=== PATIENT | male | born 1955 | race Caucasian/White ===

== ENCOUNTER 2020-04-13 23:03 | Inpatient (IN) | payer MEDICARE ==
[~2020-04-13] VITALS: Ht 180.3 cm; Wt 83.0 kg
--- NOTE | 2020-04-13 23:10 | NUR ---
ED Nurse Note: pt brought in by ambulance from [facility] living [facility], c/o SOB for several hours, pt has a hx of COPD, pt reports the facility ran out of o2. Pt is Spo2 99% on 4L, drops down to 90% on room air. Pt is A&Ox4, VSS, pt placed on quality assurance monitor chassis, ERMD at bedside.
--- NOTE | 2020-04-13 23:18 | Emergency Room Report ---
History of Present Illness General Chief Complaint: Dyspnea/Respdistress Source: Patient, EMS Present Illness HPI This is a 65-year-old male with history of COPD. He currently takes albuterol for. Patient presents with chief complaint of shortness of breath. He claimed that his oxygen is out. Patient is a very poor historian. He said that he was in the hospital a week ago and had a biopsy of his lungs. He does not know results. He has not follow-up. He was discharged on oxygen. He said that they drop off the oxygen and left. They did not hook it up. He does not know how it works. He thinks that is out of oxygen. He called 911. Per EMS on room air his oxygenation was 91%. On 4 L, it was 100%. Patient complained of feeling short of breath. Worse with exertion. No fever chills. No cough or congestion. No chest pain. 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: No Patient History Past Medical History: see triage record, old chart reviewed, COPD Past Surgical History: other Pertinent Family History: none Social History: Denies: smoking - History of Immunizations: other Reviewed Nursing Documentation: PMH: Agreed; PSxH: Agreed Nursing Documentation-PMH Hx COPD: Yes Review of Systems Eye: Denies: eye pain, blurred vision ENT: Denies: ear pain, nose congestion, throat swelling Respiratory: Reports: shortness of breath; Denies: cough Cardiovascular: Denies: chest pain, palpitations Gastrointestinal: Denies: abdominal pain, diarrhea, nausea, vomiting Musculoskeletal: Denies: back pain, joint pain Skin: Denies: rash Neurological: Denies: headache, numbness Endocrine: Denies: increased thirst, increased urine Hematologic/Lymphatic: Denies: easy bruising All Other Systems: negative except mentioned in HPI Physical Exam Vital Signs Date Time Temp Pulse Resp B/P (MAP) Pulse Ox O2 Delivery O2 Flow Rate FiO2 04/13/20 23:01 97.9 90 18 113/79 (90) 92 Room Air Vitals with mild hypoxia Sp02 EP Interpretation: reviewed, abnormal General Appearance: alert, Chronically Ill Head: normocephalic, atraumatic Eyes: bilateral eye PERRL, bilateral eye EOMI ENT: hearing grossly normal, normal pharynx Neck: full range of motion, supple, no meningismus Respiratory: chest non-tender, lungs clear, normal breath sounds Cardiovascular #1: regular rate, rhythm, no murmur Gastrointestinal: normal bowel sounds, non tender, no mass, no organomegaly, no bruit, non-distended Musculoskeletal: back normal, normal range of motion, gait/station normal Psychiatric: mood/affect normal Medical Decision Making Diagnostic Impression: Primary Impression: COPD exacerbation Additional Impressions: Lung cancer Qualified Codes: C34.80 - Malignant neoplasm of overlapping sites of unspecified bronchus and lung Leukocytosis Qualified Codes: D72.829 - Elevated white blood cell count, unspecified ER Course This patient presents with dyspnea. This point a combination of lung cancer and COPD. He is resting comfortably. Oxygenation is around 93 to 95% on room air. Prognosis is poor. Will admit for further work-up. I contacted Dr. Nelson for admission. EKG Diagnostic Results Rate: normal Rhythm: NSR ST Segments: no acute changes Rhythm Strip Diag. Results EP Interpretation: yes Rate: 85 Rhythm: NSR, no PVC's, no ectopy Chest X-Ray Diagnostic Results Chest X-Ray Diagnostic Results : Chest X-Ray Ordered: Yes # of Views/Limited/Complete: 1 View Indication: Shortness of Breath Interpretation: no effusion, no pneumothorax, other - elevated rt hemidiaphragm; Impression: Other - elevated rt diaphragm Electronically Signed by: David Garrido MD CT/MRI/US Diagnostic Results CT/MRI/US Diagnostic Results : Imaging Test Ordered: CT chest Impression Read by radiologist. No PE. Left lung mass concerning for neoplasm. Last Vital Signs Date Time Temp Pulse Resp B/P (MAP) Pulse Ox O2 Delivery O2 Flow Rate FiO2 04/13/20 23:01 97.9 90 18 113/79 (90) 92 Room Air Status: improved Disposition: ADMITTED INPATIENT Condition: Serious David Garrido MD Apr 13, 2020 23:18
[2020-04-13 23:25] VITALS: BP 113/79
[2020-04-13 23:33] LABS: HEMATOCRIT 46.7 % (42.0-52.0); MEAN CORPUSCULAR VOLUME 97 FL (80-99); PLATELET COUNT 167 K/UL (150-450); RED BLOOD COUNT 4.82 M/UL (4.70-6.10); RED CELL DISTRIBUTION WIDTH 12.3 % (11.6-14.8)
[2020-04-13 23:47] LABS: ANION GAP 10 mmol/L (5-15); BLOOD UREA NITROGEN 18 mg/dL (7-18); CALCIUM 8.7 MG/DL (8.5-10.1); CARBON DIOXIDE 25 MMOL/L (21-32); CHLORIDE 105 MMOL/L (98-107); CREATININE 1.2 MG/DL (0.55-1.30); POTASSIUM 3.5 MMOL/L (3.5-5.1); SODIUM 140 MMOL/L (136-145)
[2020-04-13 23:57] LABS: ALANINE AMINOTRANSFERASE 27 U/L (12-78); ALBUMIN 3.3 G/DL (3.4-5.0); ALBUMIN/GLOBULIN RATIO 1.1 (1.0-2.7); ALKALINE PHOSPHATASE 79 U/L (46-116); ASPARTATE AMINO TRANSFERASE 14 U/L (15-37); BILIRUBIN,TOTAL 0.4 MG/DL (0.2-1.0)
[2020-04-14] VITALS (7 sets, daily range): BP systolic 95–132; BP diastolic 56–81
[2020-04-14] MEDS ORDERED: Omnipaque 350 100ml vial INJ PRN (00:15)
--- NOTE | 2020-04-14 00:23 | NUR ---
ED Nurse Note: pt to CT, SPo2 95% on room air
[2020-04-14 00:42] LABS: APPEARANCE,URINE CLEAR; BILIRUBIN, URINE NEGATIVE (NEGATIVE); GLUCOSE, URINE (UA) NEGATIVE (NEGATIVE); KETONES,URINE NEGATIVE (NEGATIVE); LEUKOCYTE ESTERASE ,URINE 1+ (NEGATIVE); NITRITE,URINE NEGATIVE (NEGATIVE); PH,URINE 6.5 (4.5-8.0); PROTEIN,URINE NEGATIVE (NEGATIVE); UROBILINOGEN,URINE 1 MG/DL (0.0-1.0)
[2020-04-14 00:48] LABS: COLOR,URINE YELLOW
--- NOTE | 2020-04-14 01:00 | NUR ---
ED Nurse Note: Pt resting in bed with eyes closed, non-labored breathing, spo2 95% on room air, will continue to monitor
--- NOTE | 2020-04-14 01:13 | Diagnostic Imaging Report ---
EXAM: CT Angiography Chest With Intravenous Contrast CLINICAL HISTORY: SOB TECHNIQUE: Axial computed tomographic angiography images of the chest with intravenous contrast. CTDI is 24 mGy and DLP is 251 mGy-cm. One or more of the following dose reduction techniques were used: automated exposure control, adjustment of the mA and/or kV according to patient size, use of iterative reconstruction technique. MIP reconstructed images were created and reviewed. Coronal and sagittal reformatted images were created and reviewed. COMPARISON: No relevant prior studies available. FINDINGS: Pulmonary arteries: No pulmonary embolism. Aorta: No acute findings. No thoracic aortic aneurysm. Lungs: Left lung mass concerning for bronchogenic carcinoma 2.9 x 3.1 x 3.9 cm. Lung mass causes severe narrowing of adjacent branch pulmonary arteries, and is at least partially surrounding the left lingular bronchus. Likely metastatic left upper lobe spiculated 1.5 cm nodule axial series 7 image 33. Centrilobular emphysema. Pleural space: Unremarkable. No significant effusion. No pneumothorax. Heart: Unremarkable. No cardiomegaly. No significant pericardial effusion. No evidence of RV dysfunction. Bones/joints: Multilevel age-related degenerative spine findings and osteopenia. No acute fracture. No dislocation. Soft tissues: Unremarkable. Lymph nodes: Unremarkable. No enlarged lymph nodes. IMPRESSION: 1. No pulmonary embolism. 2. Left lung mass concerning for bronchogenic carcinoma 2.9 x 3.1 x 3.9 cm. 3. Lung mass causes severe narrowing of adjacent branch pulmonary arteries, and is at least partially surrounding the left lingular bronchus. 4. Recommend endobronchial ultrasound-guided biopsy. 5. Likely metastatic left upper lobe spiculated 1.5 cm nodule axial series 7 image 33.
[2020-04-14] MEDS ORDERED: GABAPENTIN100 MG ORAL (01:29)
[2020-04-14] MEDS ORDERED: NORCO 5-325 TA1 EAC1 ORAL (01:29)
[2020-04-14] MEDS ORDERED: ALBUTEROL2.5 MG/3 M INH (01:29)
--- NOTE | 2020-04-14 02:10 | NUR ---
TRANSFER TO FLOOR: Patient transferred to as ordered, per Dr Nelson. Report given to SHAHLA Lugo. Belongings and medications given to . Family and or S/O informed of transfer.
[2020-04-14] MEDS ORDERED: Albuterol ud Inhalation HHN PRN (03:45)
[2020-04-14] MEDS ORDERED: cefTRIAXone 1 GM in D5W 55 ML IVPB SCH (03:45)
[2020-04-14] MEDS: HYDROcodone/Acetamin 5/325 tab ORAL PRN ×3 (06:33→17:35)
--- NOTE | 2020-04-14 07:15 | NUR ---
NURSE NOTES: Admitted is a 65 years old male, alert and oriented. No sob noted at this time. Denies any pain. Pt. refused to have body assessment and refused to wear a gown. Pt. able to void.All orders verified with Dr. Nelson and carried out. Will continue to monitor.
--- NOTE | 2020-04-14 07:20 | NUR ---
HAND-OFF: Report given to faheem GALE.
--- NOTE | 2020-04-14 07:25 | NUR ---
nurse notes received patient in bed, asleep but easily arousable no sign of distress on RA,denies pain or discomfort, on fall precaution observed, IVF on going no sign of infiltration noted, plan of care was disccused needs reinforcement keep clean dry and comfortable in bed, call light w/n easy reach bill moreno
[2020-04-14] MEDS: Solu-MEDROL 40mg Inj IVP SCH ×2 (10:50→21:05)
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
--- NOTE | 2020-04-14 13:49 | Diagnostic Imaging Report ---
Indication: Shortness of breath Technique: One view of the chest Comparison: none Findings: The right hemidiaphragm is elevated. The lungs and pleural spaces are clear. The heart size is normal. Impression: No acute process
--- NOTE | 2020-04-14 13:55 | NUR ---
CASE MANAGEMENT:INITIAL REVIEW 65 YR OLD MALE IRVING FROM HOME (GROUP LIVING FACILITY) CC;DYSPNEA. RESPIRATORY DISTRESS. SI;COPD. HYPOXIA. 98.0 90 18 128/81 92% 2L NC WBC 21.0 BNP 200 UA+ BLOOD, UROBILINOGEN, LEUKOCYTE ESTERASE, RBC URINE TOX ~ NEGATIVE COVID-19 RAPID ~ NEGATIVE CXR ~ NO ACUTE PROCESS ADMITTED TO MED SURG FOR FURTHER WORK UP MED SURG STATUS DCP;FROM ASSISTED LIVING Addendum: 04/14/20 at 1514 by TIMMY FAIRCHILD LVN LVN INTERQUAL CRITERIA MET
--- NOTE | 2020-04-14 15:45 | Consultation ---
DATE OF CONSULTATION: 04/14/2020 PULMONARY CONSULTATION HISTORY OF PRESENT ILLNESS: This is a 65-year-old male with a long-standing history of emphysema. He takes albuterol on a regular basis. He came to the hospital with worsening shortness of breath. The patient states that he has oxygen at home, but he ran out. The patient states he was recently discharged from the hospital and had a lung biopsy; however, he is unable to recall the name of the hospital. At this time, he states he is feeling better with oxygen. The patient was admitted to the hospital and had a CT chest, which showed that he had a finding suspicious for lung cancer. He has evidence of a left lung mass concerning for bronchogenic carcinoma. This mass is causing narrowing of the pulmonary arteries as well as partially surrounding the left lingular bronchus. There is a spiculated lesion in the left upper lobe with centrilobular emphysema. There is also fine ground-glass infiltrates suspicious for pneumonic process. The patient is unable to provide any further history. PAST HISTORY: Emphysema, probable lung cancer. HOME MEDICATIONS: Albuterol. ALLERGIES: None. REVIEW OF SYSTEMS: Denies any headaches, hematemesis, melena, hematochezia, night sweats, or weight loss. PHYSICAL EXAMINATION: GENERAL: A 65-year-old male lying in bed. VITAL SIGNS: Blood pressure is 119/60, heart rate 80, respirations 18, O2 sats 98% on room air. LABORATORY TESTING: White count 21,000, otherwise normal CBC and BMP. Toxicology is negative. Urinalysis is negative. Coags are normal. IMPRESSION: 1. Left lung mass, suspect carcinoma. 2. Postobstructive pneumonia, left lung. 3. Emphysema. DISCUSSION: Admit to the hospital. The patient needs steroids and antibiotics. He has received Solu-Medrol and he is also on Levaquin. We will attempt to obtain old records. The patient may be a candidate for chemoradiation versus palliative care. Mateus Romero M.D. DR: IESHA JOB#: [id number] CC:
--- NOTE | 2020-04-14 19:10 | NUR ---
HAND-OFF: Report given to Jv GALE resting comfortably in bed, needs met and anticipated bill moreno.
--- NOTE | 2020-04-14 20:15 | NUR ---
NURSE NOTES: patient in bed, awake, alert and verbally responsive. Able to make needs known. Respiration is even and unlabored. No complaint of pain or discomfort noted. Abdomen is soft and non distended. IV site note, iv fluid is infusing as ordered. Kept clean and comfortable. Bed in low and locked position. Provided safe environment. Call light is at bedside Will continue plan of care.
[2020-04-15 04:00] VITALS: BP 94/62
--- NOTE | 2020-04-15 05:52 | Pulmonology Progress Note ---
Subjective Interval Events: None new reported Constitutional: Reports: no symptoms HEENT: Repors: no symptoms Respiratory: Reports: no symptoms Cardiovascular: Reports: no symptoms Gastrointestinal/Abdominal: Reports: no symptoms Allergies: Uncoded Allergies: PENICILLIN (Allergy, Unknown, 04/13/20) Objective Last 24 Hour Vital Signs Date Time Temp Pulse Resp B/P (MAP) Pulse Ox O2 Delivery O2 Flow Rate FiO2 04/15/20 04:00 98.6 63 16 94/62 (73) 97 04/14/20 23:51 97.2 68 18 95/63 (74) 97 04/14/20 21:00 Room Air 04/14/20 20:00 97.9 71 18 105/68 (80) 95 04/14/20 16:17 98.1 68 19 132/81 (98) 97 04/14/20 11:59 98.0 82 21 119/68 (85) 97 04/14/20 09:30 Room Air 04/14/20 08:00 97.7 86 20 110/60 (77) 97 04/14/20 07:03 98.3 Intake and Output 04/14/20 04/15/20 19:00 07:00 Intake Total 2150 ml Balance 2150 ml Intake Oral 1100 ml IV Total 1050 ml # Voids 7 General Appearance: no acute distress HEENT: normocephalic Respiratory: chest wall non-tender Cardiovascular: normal peripheral pulses, normal rate Abdomen: normal bowel sounds Microbiology Date/Time Source Procedure Growth Status 04/13/20 23:20 Nasopharynx SARS-CoV-2 RdRp Gene Assay - Final Complete Current Medications Medications (Trade) Dose Ordered Sig/Julio Route PRN Reason Start Time Stop Time Status Last Admin Dose Admin Acetaminophen/ Hydrocodone Bitart ([place] 5/325) 1 tab Q6H PRN ORAL FOR PAIN 04/14/20 03:45 04/21/20 03:44 04/14/20 17:35 Albuterol Sulfate (Proventil) 2.5 mg Q4H PRN HHN Shortness of Breath 04/14/20 03:45 04/19/20 03:44 Gabapentin (Neurontin) 100 mg THREE TIMES A DAY ORAL 04/14/20 09:00 05/14/20 08:59 04/14/20 17:22 Levofloxacin 100 ml @ 100 mls/hr Q24H IVPB 04/14/20 09:00 04/21/20 08:59 04/14/20 08:20 Methylprednisolone Sodium Succinate (Solu-MEDROL) 40 mg EVERY 12 HOURS IVP 04/14/20 10:45 07/13/20 10:44 04/14/20 21:05 Nicotine (Nicoderm) 1 patch Q24H TDERMAL 04/14/20 11:00 07/13/20 10:59 04/14/20 10:50 Sodium Chloride 1,000 ml @ 100 mls/hr Q10H IV 04/14/20 04:00 05/14/20 03:59 04/15/20 03:00 Assessment/Plan Assessment/Plan IMPRESSION: 1. Left lung mass, suspect carcinoma. 2. Postobstructive pneumonia, left lung. 3. Emphysema. DISCUSSION: Continue steroids and antibiotics. He has received Solu-Medrol and he is also on Levaquin. Patient states he recently underwent lung biopsy Recommend oncology eval The patient may be a candidate for chemoradiation versus palliative care. Joshua Reeves Omar Syed MD Apr 15, 2020 05:52
--- NOTE | 2020-04-15 07:20 | NUR ---
NURSE NOTES: Received report from SHAHLA Carias. Patient A&Ox4, on nasal cannula. No signs of distress. IV intact, patent, and saline locked. Bed in lowest position with call light in reach. Will continue with plan of care.
--- NOTE | 2020-04-15 07:26 | NUR ---
HAND-OFF: Report given to Mikayla Cho.
[2020-04-15 08:00] VITALS: BP 96/82
[2020-04-15 09:21] VITALS: BP 104/70
[2020-04-15] MEDS: HYDROcodone/Acetamin 5/325 tab ORAL PRN ×3 (09:22→23:25)
[2020-04-15] MEDS: Solu-MEDROL 40mg Inj IVP SCH ×2 (09:23→20:54)
[2020-04-15 12:00] VITALS: BP 95/61
--- NOTE | 2020-04-15 13:30 | History and Physical Report ---
DATE OF ADMISSION: 04/14/2020 HISTORY OF PRESENT ILLNESS: This is a 65-year-old male who came from home where he has short of breath and hypoxia for a few days prior to admission. The patient is currently sitting in bed and is still hypoxic and wheezing. PAST MEDICAL HISTORY: Significant for chronic pain, anxiety, COPD, smoker. ALLERGIES: NKA. MEDICATIONS: Tylenol, [place], gabapentin. PHYSICAL EXAMINATION: VITAL SIGNS: Blood pressure 110/60, pulse 86, respirations 20, temperature 97.7 HEENT: NAD. CHEST: Bilateral scattered wheezing. CARDIOVASCULAR: Regular rhythm. No gallop. No murmur. ABDOMEN: Soft. Positive bowel sounds. Nontender. EXTREMITIES: No edema GENITOURINARY: Deferred. LABORATORY DATA: White counts are 21,000, hemoglobin 16, hematocrit 46, and platelets 167,000. Chemistry panel - sodium 140, potassium 3.5, BUN 18, creatinine 1.2. Glucose is 113. Urine showing 1+ blood, 1+ urobilinogen, 1+ leukocyte esterase. Toxicology report is negative. CT of chest showing no pulmonary embolism, left lung mass concerning of bronchogenic carcinoma. Lung mass causes severe pulmonary artery ultrasound-guided biopsy. ASSESSMENT: 1. Possible lung mass. 2. Acute COPD exacerbation. 3. Anxiety. 4. Smoker. PLAN: We will admit on medical floor. Add IV antibiotics, IV steroid bronchodilator treatment. Discussed with Dr. Romero, Pulmonary consult. Also discussed with charge nurse and recommended to quit smoking at this point. Franklin Nelson M.D. DR: OSIEL JOB#: [id number] CC:
--- NOTE | 2020-04-15 14:52 | NUR ---
CASE MANAGEMENT: REVIEW 04/15/2020 SI:COPD. HYPOXIA. VS: 97.5 HR 88 RR 20 B/P 95/61 SATS 95% ON RA LABS: NO LABS TODAY IS:NS @ 100 ML/HR SOLU MEDROL IV Q12H GABAPENTIN PO TID MED/SURG DCP: [facility] PLAN OF CARE: IV antibiotics, IV steroid bronchodilator treatment.
[2020-04-15 16:00] VITALS: BP 100/67
--- NOTE | 2020-04-15 17:00 | Progress Note ---
DATE: 04/15/2020 SUBJECTIVE: This is elderly male, who is still short of breath, hypoxic, lying in bed. OBJECTIVE: VITAL SIGNS: Blood pressure 95/61, pulse 88, respirations 20, temperature is 97.5. HEENT: NAD. CHEST: Bilaterally scattered wheezing. CARDIOVASCULAR: Regular rhythm. No gallop. No murmur. ABDOMEN: Soft. EXTREMITIES: CCE. ASSESSMENT: 1. Acute COPD exacerbation. 2. Anxiety. 3. Chronic pain. 4. Depression. PLAN: Continue Solu-Medrol. Continue Levaquin. Continue gabapentin, [place]. Franklin Nelson M.D. DR: CAROLINE JOB#: [id number] CC:
--- NOTE | 2020-04-15 19:16 | NUR ---
HAND-OFF: Report given to SHAHLA Carias. Rounds done.
--- NOTE | 2020-04-15 19:59 | NUR ---
NURSE NOTES: Patient in bed, awake, alert and verbally responsive. Able to make needs known. Respiration is even and unlabored. Kept clean and comfortable. No complaint of pain or discomfort noted. Iv site noted, iv fluid is infusing as ordered. Bed in low and locked position. Provided safe environment. Call light is at bedside. Will continue plan of care.
[2020-04-15 20:00] VITALS: BP 98/68
[2020-04-15] MEDS: Zolpidem 5mg tab ORAL PRN (20:54)
[2020-04-16] VITALS: BP 107/73
[2020-04-16 04:00] VITALS: BP 110/66
[2020-04-16] MEDS: HYDROcodone/Acetamin 5/325 tab ORAL PRN ×3 (05:35→20:47)
--- NOTE | 2020-04-16 06:59 | NUR ---
HAND-OFF: Report given to Mikayla Maldonado.
[2020-04-16 08:00] VITALS: BP 120/70
--- NOTE | 2020-04-16 08:06 | NUR ---
NURSE NOTES: Received report from SHAHLA Alegria. patient seen in bed, AAOx4, ambulatory with steady gait, with NC 2L/m. IV site patent and intact. Patient denies any chest pain or SOB at this time. Patient does not appear to be in any distress. Bed is locked and placed in lowest position. Call light within reach. Will continue to monitor.
[2020-04-16] MEDS: Solu-MEDROL 40mg Inj IVP SCH ×2 (09:01→20:46)
[2020-04-16 10:58] LABS: HEMATOCRIT 40.3 % (42.0-52.0); HEMOGLOBIN 13.4 G/DL (14.2-18.0); MEAN CORPUSCULAR VOLUME 99 FL (80-99); PLATELET COUNT 162 K/UL (150-450); RED BLOOD COUNT 4.08 M/UL (4.70-6.10); RED CELL DISTRIBUTION WIDTH 12.2 % (11.6-14.8); WHITE BLOOD COUNT 18.7 K/UL (4.8-10.8)
[2020-04-16 11:09] LABS: ALANINE AMINOTRANSFERASE 20 U/L (12-78); ALBUMIN/GLOBULIN RATIO 1.2 (1.0-2.7); ALKALINE PHOSPHATASE 66 U/L (46-116); ANION GAP 4 mmol/L (5-15); ASPARTATE AMINO TRANSFERASE 13 U/L (15-37); BILIRUBIN,TOTAL 0.2 MG/DL (0.2-1.0); BLOOD UREA NITROGEN 16 mg/dL (7-18); CALCIUM 8.4 MG/DL (8.5-10.1); CARBON DIOXIDE 27 MMOL/L (21-32); CHLORIDE 108 MMOL/L (98-107); CREATININE 0.9 MG/DL (0.55-1.30); POTASSIUM 4.7 MMOL/L (3.5-5.1); SODIUM 139 MMOL/L (136-145)
[2020-04-16 12:00] VITALS: BP 117/72
--- NOTE | 2020-04-16 14:25 | Pulmonology Progress Note ---
Subjective ROS Limited/Unobtainable: No Interval Events: None new reported Constitutional: Reports: no symptoms HEENT: Repors: no symptoms Respiratory: Reports: no symptoms Cardiovascular: Reports: no symptoms Gastrointestinal/Abdominal: Reports: no symptoms Allergies: Coded Allergies: PENICILLINS (Verified Allergy, Intermediate, 04/15/20) hives Objective Last 24 Hour Vital Signs Date Time Temp Pulse Resp B/P (MAP) Pulse Ox O2 Delivery O2 Flow Rate FiO2 04/16/20 12:00 97.5 67 20 117/72 (87) 95 04/16/20 09:00 Nasal Cannula 2.0 04/16/20 08:00 98.7 75 18 120/70 (87) 95 04/16/20 04:00 97.8 71 18 110/66 (81) 94 04/16/20 00:00 97.6 74 18 107/73 (84) 95 04/15/20 20:13 Nasal Cannula 2.0 04/15/20 20:00 72 18 94 Nasal Cannula 2.0 28 04/15/20 20:00 94 Nasal Cannula 2.0 28 04/15/20 20:00 97.9 72 16 98/68 (78) 95 04/15/20 16:00 99.0 92 20 100/67 (78) 94 Intake and Output 04/15/20 04/16/20 19:00 07:00 Intake Total 1400 ml 1700 ml Output Total 1600 ml 1000 ml Balance -200 ml 700 ml Intake Oral 600 ml 800 ml IV Total 800 ml 900 ml Output Urine Total 1600 ml 1000 ml General Appearance: no acute distress HEENT: normocephalic Respiratory: chest wall non-tender Cardiovascular: normal peripheral pulses, normal rate Abdomen: normal bowel sounds Microbiology Date/Time Source Procedure Growth Status 04/13/20 23:20 Nasopharynx SARS-CoV-2 RdRp Gene Assay - Final Complete Laboratory Tests 04/16/20 10:35: White Blood Count 18.7H, Red Blood Count 4.08L, Hemoglobin 13.4L, Hematocrit 40.3L, Mean Corpuscular Volume 99, Mean Corpuscular Hemoglobin 32.9H, Mean Corpuscular Hemoglobin Concent 33.3, Red Cell Distribution Width 12.2, Platelet Count 162, Mean Platelet Volume 6.6, Neutrophils (%) (Auto) , Lymphocytes (%) ( Auto) , Monocytes (%) (Auto) , Eosinophils (%) (Auto) , Basophils (%) (Auto) , Differential Total Cells Counted 100, Neutrophils % (Manual) 84H, Lymphocytes % (Manual) 9L, Monocytes % (Manual) 7, Eosinophils % (Manual) 0, Basophils % ( Manual) 0, Band Neutrophils 0, Platelet Estimate Adequate, Platelet Morphology Normal, Red Blood Cell Morphology Normal, Sodium Level 139, Potassium Level 4.7 , Chloride Level 108H, Carbon Dioxide Level 27, Anion Gap 4L, Blood Urea Nitrogen 16, Creatinine 0.9, Estimat Glomerular Filtration Rate > 60, Glucose Level 118H, Calcium Level 8.4L, Total Bilirubin 0.2, Aspartate Amino Transf (AST /SGOT) 13L, Alanine Aminotransferase (ALT/SGPT) 20, Alkaline Phosphatase 66, Total Protein 5.5L, Albumin 3.0L, Globulin 2.5, Albumin/Globulin Ratio 1.2 Current Medications Medications (Trade) Dose Ordered Sig/Julio Route PRN Reason Start Time Stop Time Status Last Admin Dose Admin Acetaminophen/ Hydrocodone Bitart ([place] 5/325) 1 tab Q6H PRN ORAL FOR PAIN 04/14/20 03:45 04/21/20 03:44 04/16/20 05:35 Albuterol Sulfate (Proventil) 2.5 mg Q4H PRN HHN Shortness of Breath 04/14/20 03:45 04/19/20 03:44 Gabapentin (Neurontin) 100 mg THREE TIMES A DAY ORAL 04/14/20 09:00 05/14/20 08:59 04/16/20 12:11 Levofloxacin 100 ml @ 100 mls/hr Q24H IVPB 04/14/20 09:00 04/21/20 08:59 04/16/20 09:33 Methylprednisolone Sodium Succinate (Solu-MEDROL) 40 mg EVERY 12 HOURS IVP 04/14/20 10:45 07/13/20 10:44 04/16/20 09:01 Nicotine (Nicoderm) 1 patch Q24H TDERMAL 04/14/20 11:00 07/13/20 10:59 04/16/20 11:11 Sodium Chloride 1,000 ml @ 100 mls/hr Q10H IV 04/14/20 04:00 05/14/20 03:59 04/16/20 06:06 Zolpidem Tartrate (Ambien) 5 mg HSPRN PRN ORAL Insomnia 04/15/20 19:30 04/22/20 19:29 04/15/20 20:54 Assessment/Plan Assessment/Plan Pulmonary Progress Note Subjective Interval Events: None new reported Constitutional: Reports: no symptoms HEENT: Repors: no symptoms Respiratory: Reports: no symptoms Cardiovascular: Reports: no symptoms Gastrointestinal/Abdominal: Reports: no symptoms Allergies: Uncoded Allergies: PENICILLIN (Allergy, Unknown, 04/13/20) Objective Vital Signs Noted General Appearance: no acute distress HEENT: normocephalic Respiratory: chest wall non-tender Cardiovascular: normal peripheral pulses, normal rate Abdomen: normal bowel sounds Labs noted Radiology noted IMPRESSION: 1. Left lung mass, suspect carcinoma. 2. Postobstructive pneumonia, left lung. 3. Emphysema. PLAN: Continue steroids, HHN and antibiotics. Patient recently underwent lung biopsy, await results The patient may be a candidate for chemoradiation versus palliative care. Jalil Andrea MD Apr 16, 2020 14:25
[2020-04-16 16:00] VITALS: BP 130/70
--- NOTE | 2020-04-16 17:00 | Progress Note ---
DATE: 04/16/2020 This is a 65-year-old male who came with severe depression and acute shortness of breath secondary to acute COPD exacerbation. The patient is currently in the bed, feeling okay. Shortness of breath is same. PHYSICAL EXAMINATION: VITAL SIGNS: Blood pressure is 130/70, pulse 74, respirations 18. HEENT: NAD. CHEST: Bilaterally decreased breath sounds. CARDIOVASCULAR: Regular rhythm. No gallop. No murmur. ABDOMEN: Soft. Positive bowel sounds. Nontender. EXTREMITIES: No edema. GENITOURINARY: Deferred. LABORATORY DATA: The patient has no labs today. ASSESSMENT: 1. Acute COPD exacerbation. 2. Hypertension. 3. Depression. 4. Anxiety. PLAN: We will currently continue current treatment. Decrease Decadron. Continue bronchodilator treatments. Franklin Nelson M.D. DR: CLARENCE JOB#: [id number] CC:
--- NOTE | 2020-04-16 19:28 | NUR ---
HAND-OFF: Report given to SHAHLA Paulson.
--- NOTE | 2020-04-16 19:50 | NUR ---
NURSE NOTES: Received report from Luep GALE, ER. The patient is alert and oriented x4 and was able to communicate in clear [place]. He is on room air with Resp even and unlabored . He was noted with some level of agitations but a calm environment was provided and He was also given snacks and was able to relaxed and fell asleep. The body is warm and soft with abdomen soft and non-distended, Active bowel sounds noted in all extremities. The patient is on dialysis and was admitted due to missed dialysis for 2 weeks and generalized weakness. Dialysis access was noted on the R. upper chest with double lumen. The is a RFA IV-line 18g that is patent and asymptomatic. The patient can self ambulate but will need assistance due to weakness. The admissions orders all done and executed as indicated. The bed in low position, siderails up x2 and call light within easy reach. Will continue to monitor Addendum: 04/17/20 at 0345 by Moisemichelle López RN NURSE NOTES: Wrong Patient
--- NOTE | 2020-04-16 19:50 | NUR ---
NURSE NOTES: Received report from Vipul RN.The patient is alert and oriented x4, Resp is even and unlabored and he is on Oxygen @ 2 liters via NC well tolerated. He does not seem to be in any acute distress.Resident has a R. AC 20G IV line that is patent and asymptomatic running NS @ 100 ml/hr. Bed in low and log position and call light within easy reach. will continue to monitor.
[2020-04-16 20:00] VITALS: BP 144/73
[2020-04-16] MEDS: Zolpidem 5mg tab ORAL PRN (20:46)
[2020-04-17] VITALS (7 sets, daily range): BP systolic 86–156; BP diastolic 41–85
--- NOTE | 2020-04-17 01:11 | NUR ---
NURSE NOTES: The consent for dialysis was obtained and signed by the patient and the dialysis nurse was inform of patient status. Addendum: 04/17/20 at 0344 by Moise López RN NURSE NOTE Wrong patient
--- NOTE | 2020-04-17 07:01 | NUR ---
The patient is calm and relaxed and was able to sleep all night long. The Resp is even and unlabored and he remained on 2 liters NC well tolerated. He remained on IV fluids maintenance of NS @100 ml/hr well tolerated. will continue to monitor
--- NOTE | 2020-04-17 07:21 | NUR ---
HAND-OFF: Report given to SHAHLA WRIGHT.
--- NOTE | 2020-04-17 08:00 | NUR ---
NURSE NOTES: received patient in bed, asleep, no sign of pain or discomfort. On 2L )2/min, no respiratory distress noted. Receives IVF through RAC, no sign of infiltration noted. Bed locked at the lowest position possible, call light within easy reach, siderails up x2. Will continue to monitor patient and follow up with the plan of care.
[2020-04-17] MEDS: Solu-MEDROL 40mg Inj IVP SCH ×2 (08:45→22:21)
[2020-04-17] MEDS: HYDROcodone/Acetamin 5/325 tab ORAL PRN ×2 (08:52→16:56)
--- NOTE | 2020-04-17 12:57 | Pulmonology Progress Note ---
Subjective ROS Limited/Unobtainable: No Interval Events: None new reported Constitutional: Reports: no symptoms HEENT: Repors: no symptoms Respiratory: Reports: no symptoms Cardiovascular: Reports: no symptoms Gastrointestinal/Abdominal: Reports: no symptoms Allergies: Coded Allergies: PENICILLINS (Verified Allergy, Intermediate, 04/15/20) hives Objective Last 24 Hour Vital Signs Date Time Temp Pulse Resp B/P (MAP) Pulse Ox O2 Delivery O2 Flow Rate FiO2 04/17/20 12:00 99.0 65 16 90/54 (66) 96 04/17/20 09:22 98.0 04/17/20 09:00 Nasal Cannula 2.0 04/17/20 08:00 98.0 88 18 95/41 (59) 97 04/17/20 04:00 97.6 87 18 110/85 (93) 97 04/17/20 01:04 62 18 94 Nasal Cannula 2.0 28 04/17/20 01:04 94 Nasal Cannula 2.0 28 04/17/20 00:00 97.9 80 19 108/70 (83) 96 04/16/20 21:00 Nasal Cannula 2.0 04/16/20 20:00 97.8 67 19 144/73 (96) 96 04/16/20 16:00 97.9 80 18 130/70 (90) 95 Intake and Output 04/16/20 04/17/20 19:00 07:00 Intake Total 800 ml 1950 ml Output Total 1000 ml 1300 ml Balance -200 ml 650 ml Intake Oral 400 ml 750 ml IV Total 400 ml 1200 ml Output Urine Total 1000 ml 1300 ml # Voids 4 General Appearance: no acute distress HEENT: normocephalic Respiratory: chest wall non-tender Cardiovascular: normal peripheral pulses, normal rate Abdomen: normal bowel sounds Current Medications Medications (Trade) Dose Ordered Sig/Julio Route PRN Reason Start Time Stop Time Status Last Admin Dose Admin Acetaminophen/ Hydrocodone Bitart ([place] 5/325) 1 tab Q6H PRN ORAL FOR PAIN 04/14/20 03:45 04/21/20 03:44 04/17/20 08:52 Albuterol Sulfate (Proventil) 2.5 mg Q4H PRN HHN Shortness of Breath 04/14/20 03:45 04/19/20 03:44 Gabapentin (Neurontin) 100 mg THREE TIMES A DAY ORAL 04/14/20 09:00 05/14/20 08:59 04/17/20 12:14 Levofloxacin 100 ml @ 100 mls/hr Q24H IVPB 04/14/20 09:00 04/21/20 08:59 04/17/20 08:51 Methylprednisolone Sodium Succinate (Solu-MEDROL) 40 mg EVERY 12 HOURS IVP 04/14/20 10:45 07/13/20 10:44 04/17/20 08:45 Nicotine (Nicoderm) 1 patch Q24H TDERMAL 04/14/20 11:00 07/13/20 10:59 04/17/20 10:44 Sodium Chloride 1,000 ml @ 100 mls/hr Q10H IV 04/14/20 04:00 05/14/20 03:59 04/17/20 12:12 Zolpidem Tartrate (Ambien) 5 mg HSPRN PRN ORAL Insomnia 04/15/20 19:30 04/22/20 19:29 04/16/20 20:46 Assessment/Plan Assessment/Plan Pulmonary Progress Note Subjective Interval Events: None new reported Constitutional: Reports: no symptoms HEENT: Repors: no symptoms Respiratory: Reports: no symptoms Cardiovascular: Reports: no symptoms Gastrointestinal/Abdominal: Reports: no symptoms Allergies: Uncoded Allergies: PENICILLIN (Allergy, Unknown, 04/13/20) Objective Vital Signs Noted General Appearance: no acute distress HEENT: normocephalic Respiratory: chest wall non-tender Cardiovascular: normal peripheral pulses, normal rate Abdomen: normal bowel sounds Labs noted Radiology noted IMPRESSION: 1. Left lung mass, suspect carcinoma. 2. Postobstructive pneumonia, left lung. 3. Emphysema. PLAN: Continue steroids, HHN and antibiotics. Patient recently underwent lung biopsy, await results The patient may be a candidate for chemoradiation versus palliative care. Jalil Andrea MD Apr 17, 2020 12:57
--- NOTE | 2020-04-17 17:00 | Progress Note ---
DATE: 04/17/2020 SUBJECTIVE: This is a 65-year-old male. Currently doing better. Shortness of breath is better. OBJECTIVE: VITAL SIGNS: Stable. CHEST: Bilateral crackles. CARDIOVASCULAR: Regular rhythm. No gallop. No murmur. ABDOMEN: Soft. EXTREMITIES: CCE. NEUROLOGICAL: Patient has no focal deficit. GENITOURINARY: Deferred. ASSESSMENT: 1. Acute COPD exacerbation. 2. Anxiety. 3. Depression. 4. Chronic pain. PLAN: 1. We will continue current treatment. 2. Titrate Decadron. 3. Continue bronchodilator treatments. Franklin Nelson M.D. DR: CAROLINE JOB#: [id number] CC:
--- NOTE | 2020-04-17 19:44 | NUR ---
HAND-OFF: Report given to SHAHLA Miller.
--- NOTE | 2020-04-17 19:45 | NUR ---
NURSE NOTES: Report received from Alisson GALE. Patient is awake and alert x 4. Patient is noted to be on 2 liters of oxygen. Patient denies chest pain and shortness of breath at this time. Patient is noted to have right AC 20 evelin with fluids running per MD orders. Patient requested sleep medication. Benji GALE informed the patient he will bring his sleeping medication with first medication pass. Patient verbalized understanding and was okay with that decision. Patient verbalized he will use call light if he needs help. Bed is locked and in lowest position. Call light in reach. Will continue to follow plan of care.
--- NOTE | 2020-04-17 20:05 | NUR ---
NURSE NOTES: Patient noted to have blood pressure of 86/55 with a heart rate of 72 beats per minute. Patient appears to be asymptomatic. Patient denies dizziness, nausea, and/or vomiting. Patient denies chest pain at this time. Patient states he feels slightly tired but has no other complaints at this time. Benji GALE had patient sit up right in bed and gave pitcher of water for patient to drink. Benji GALE educated Patient not to get up alone. Patient verbalized understanding and verbalized he will continue to drink fluids. Benji GALE noted that patient received pain medication throughout the day shift with a a systolic pressure in the 90's. Benji GALE informed patient he that he cannot receive sleep medication or pain medication until his blood pressure improves. Patient verbalized understanding. Transitional Nurse Nurse Leah is aware of the situation. Will reassess patient.
--- NOTE | 2020-04-17 21:25 | NUR ---
NURSE NOTES: Patient's blood pressure noted to improve to 100/56 with a heart rate of 82 beats per minute. Patient is still asymptomatic, patient has no complaints at this time. Benji GALE encourage patient to continue to drink fluids. Patient verbalized understanding.
[2020-04-17] MEDS: Zolpidem 5mg tab ORAL PRN (22:22)
[2020-04-18] VITALS (7 sets, daily range): BP systolic 73–107; BP diastolic 44–74
--- NOTE | 2020-04-18 06:54 | NUR ---
NURSE NOTES: Spoke with Doctor Omar regarding blood pressure of 85/52. Doctor aware and told Benji GALE to monitor. Patient denies chest pain, sob, and dizziness at this time. Patient asymptomatic. Benji GALE encourage patient to drink fluids. Charge nurse Leah perez.
[2020-04-18] MEDS: HYDROcodone/Acetamin 5/325 tab ORAL PRN ×3 (07:33→20:17)
--- NOTE | 2020-04-18 07:40 | NUR ---
NURSE NOTES: received patient in bed, awake, alert, complaint of right leg pain 6/10 due to sciatica. Given Fries as ordered PRN, and Neurontin as ordered ATC. VS taken, afebrile, patient presenting hypotension 81/50, patient says he's tired, denies dizziness. Offered more liquids. Maintains RAC IV access, receives IVF. Bed locked at the lowest position possible, call light within easy reach, siderails up x2. Offered patient a yellow gown and socks, patient refused. He's wearing street clothes: T-shirt, sweatpants and socks. Says he'll feel cold with thin fabric clothes. Will keep monitoring patient and follow up with the plan of care.
--- NOTE | 2020-04-18 07:51 | NUR ---
HAND-OFF: Report given to Alisson GALE. Endorsed that patient had low blood pressure and was asymptomatic. Endorsed that Doctor Omar is aware and informed Benji GALE to monitor patient.
[2020-04-18] MEDS: Solu-MEDROL 40mg Inj IVP SCH ×2 (08:00→20:14)
--- NOTE | 2020-04-18 08:38 | Pulmonology Progress Note ---
Subjective ROS Limited/Unobtainable: No Interval Events: None new reported Constitutional: Reports: no symptoms HEENT: Repors: no symptoms Respiratory: Reports: no symptoms Cardiovascular: Reports: no symptoms Gastrointestinal/Abdominal: Reports: no symptoms Allergies: Coded Allergies: PENICILLINS (Verified Allergy, Intermediate, 04/15/20) hives Objective Last 24 Hour Vital Signs Date Time Temp Pulse Resp B/P (MAP) Pulse Ox O2 Delivery O2 Flow Rate FiO2 04/18/20 08:00 97.9 04/18/20 07:27 97.9 73 16 81/50 (60) 95 04/18/20 06:54 85 85/52 (63) 04/18/20 04:00 97.0 78 18 98/58 (71) 95 04/18/20 00:00 97.5 63 16 100/63 (75) 94 04/17/20 21:24 82 100/56 (71) 04/17/20 21:00 Nasal Cannula 2.0 04/17/20 20:00 97.1 72 18 86/55 (65) 95 04/17/20 16:00 97.9 67 17 92/55 (67) 94 04/17/20 12:00 99.0 65 16 90/54 (66) 96 04/17/20 09:00 Nasal Cannula 2.0 Intake and Output 04/17/20 04/18/20 19:00 07:00 Intake Total 2050 ml 2300 ml Output Total 2200 ml Balance 2050 ml 100 ml Intake Oral 1500 ml IV Total 1050 ml 800 ml Other 1000 ml Output Urine Total 2200 ml # Voids 4 General Appearance: no acute distress HEENT: normocephalic Respiratory: chest wall non-tender Cardiovascular: normal peripheral pulses, normal rate Abdomen: normal bowel sounds Current Medications Medications (Trade) Dose Ordered Sig/Julio Route PRN Reason Start Time Stop Time Status Last Admin Dose Admin Acetaminophen/ Hydrocodone Bitart ([place] 5/325) 1 tab Q6H PRN ORAL FOR PAIN 04/14/20 03:45 04/21/20 03:44 04/18/20 07:33 Albuterol Sulfate (Proventil) 2.5 mg Q4H PRN HHN Shortness of Breath 04/14/20 03:45 04/19/20 03:44 Gabapentin (Neurontin) 100 mg THREE TIMES A DAY ORAL 04/14/20 09:00 05/14/20 08:59 04/18/20 07:34 Levofloxacin 100 ml @ 100 mls/hr Q24H IVPB 04/14/20 09:00 04/21/20 08:59 04/18/20 08:00 Methylprednisolone Sodium Succinate (Solu-MEDROL) 40 mg EVERY 12 HOURS IVP 04/14/20 10:45 07/13/20 10:44 04/18/20 08:00 Nicotine (Nicoderm) 1 patch Q24H TDERMAL 04/14/20 11:00 07/13/20 10:59 04/17/20 10:44 Sodium Chloride 1,000 ml @ 100 mls/hr Q10H IV 04/14/20 04:00 05/14/20 03:59 04/17/20 22:21 Zolpidem Tartrate (Ambien) 5 mg HSPRN PRN ORAL Insomnia 04/15/20 19:30 04/22/20 19:29 04/17/20 22:22 Assessment/Plan Assessment/Plan IMPRESSION: 1. Left lung mass, suspect carcinoma. 2. Postobstructive pneumonia, left lung. 3. Emphysema. PLAN: Continue steroids, HHN and antibiotics. Patient recently underwent lung biopsy, await results The patient may be a candidate for chemoradiation versus palliative care. Joshua Reeves Omar Syed MD Apr 18, 2020 08:37
--- NOTE | 2020-04-18 15:23 | NUR ---
CASE MANAGEMENT:REVIEW SI;LEFT LUNG MASS (SUSPECT CARCINOMA). POST OBSTRUCTIVE PNA. 96.8 85 18 73/44 95% 2L NC FIO2 @ 28% IS;SOLU-MEDROL IV Q12 IVF NS @ 100 ML/HR LEVOFLOXACIN IV Q24 MED SURG STATUS DCP;FROM [facility]F
--- NOTE | 2020-04-18 18:00 | Progress Note ---
DATE: 04/18/2020 This is a 65-year-old male who has been hypotensive, is a still slightly short of breath. He is in the bed, alert, oriented. PHYSICAL EXAMINATION: VITAL SIGNS: Blood pressure is running 73/44, pulse 64, temp is 96.8. CHEST: Bilaterally scattered wheezing. CARDIOVASCULAR: Regular rhythm. ABDOMEN: Soft. Positive bowel sounds. Nontender. EXTREMITIES: No edema. LABORATORY DATA: His white counts are 21,000 to now 18,000. Chemistry panel, BUN 6, creatinine 0.9. ASSESSMENT: 1. Acute COPD exacerbation. 2. Hypertension. 3. Anxiety. 4. Depression. PLAN: We are giving IV fluid bolus. Continue Solu-Medrol. Continue gabapentin, Levaquin. Continue bronchodilator treatment. Pulmonary is on case. Franklin Nelson M.D. DR: CLARENCE JOB#: [id number] CC:
--- NOTE | 2020-04-18 19:30 | NUR ---
NURSE NOTES: Pt. received from SHAHLA Downs. Pt. AAOx4, on room air, breathing even and unlabored on 2L NC, no indications of respiratory distress and no complaints of pain at this time. IV noted on right AC intact and patent, running 1/2 NS at 100cc. Bed is low and locked, side rails x2 up, and call light in reach. Reinforced used of call light for assistance, pt. acknowledged and verbalized understanding.
[2020-04-18] MEDS: Zolpidem 5mg tab ORAL PRN (20:14)
[2020-04-19] VITALS: BP 88/54
[2020-04-19] MEDS: HYDROcodone/Acetamin 5/325 tab ORAL PRN ×4 (03:26→22:25)
[2020-04-19 04:00] VITALS: BP 106/62
--- NOTE | 2020-04-19 07:29 | NUR ---
HAND-OFF: Report given to SHAHLA Francis.
--- NOTE | 2020-04-19 07:30 | NUR ---
NURSE NOTES: Received patient in bed, awake, alert and oriented x4. Patient is on oxygen 2L/min via NC. Patient refused to change his clothes to hospital gown. RN encouraged to change to hospital gown x3 but patient stated " I am good, I don't want it." Will continue to monitor. Breathing is even and unlabored @ this time. No s/s of hypotension @ this time. Will continue to monitor.
[2020-04-19 08:00] VITALS: BP 94/52
[2020-04-19] MEDS: Solu-MEDROL 40mg Inj IVP SCH ×2 (09:06→20:55)
[2020-04-19 12:00] VITALS: BP 93/57
--- NOTE | 2020-04-19 12:05 | Pulmonology Progress Note ---
Subjective ROS Limited/Unobtainable: No Interval Events: None new reported Constitutional: Reports: no symptoms HEENT: Repors: no symptoms Respiratory: Reports: no symptoms Cardiovascular: Reports: no symptoms Gastrointestinal/Abdominal: Reports: no symptoms Allergies: Coded Allergies: PENICILLINS (Verified Allergy, Intermediate, 04/15/20) hives Objective Last 24 Hour Vital Signs Date Time Temp Pulse Resp B/P (MAP) Pulse Ox O2 Delivery O2 Flow Rate FiO2 04/19/20 09:00 Nasal Cannula 2.0 04/19/20 08:00 98.0 74 18 94/52 (66) 95 04/19/20 04:00 97.1 64 20 106/62 (77) 95 04/19/20 00:00 97.0 61 20 88/54 (65) 94 04/18/20 21:00 Nasal Cannula 2.0 04/18/20 20:00 97.2 62 20 86/51 (63) 90 04/18/20 19:59 95 Nasal Cannula 2.0 28 04/18/20 19:58 68 18 95 Nasal Cannula 2.0 28 04/18/20 15:44 97.0 65 17 107/74 (85) 96 04/18/20 14:47 96.8 Intake and Output 04/18/20 04/19/20 19:00 07:00 Intake Total 3700 ml 1100 ml Output Total 1400 ml 1300 ml Balance 2300 ml -200 ml Intake Oral 1200 ml 500 ml IV Total 1500 ml 600 ml Other 1000 ml Output Urine Total 1400 ml 1300 ml # Voids 4 3 # Bowel Movements 1 General Appearance: no acute distress HEENT: normocephalic Respiratory: chest wall non-tender Cardiovascular: normal peripheral pulses, normal rate Abdomen: normal bowel sounds Current Medications Medications (Trade) Dose Ordered Sig/Julio Route PRN Reason Start Time Stop Time Status Last Admin Dose Admin Acetaminophen/ Hydrocodone Bitart ([place] 5/325) 1 tab Q6H PRN ORAL FOR PAIN 04/14/20 03:45 04/21/20 03:44 04/19/20 10:06 Gabapentin (Neurontin) 100 mg THREE TIMES A DAY ORAL 04/14/20 09:00 05/14/20 08:59 04/19/20 09:06 Levofloxacin 100 ml @ 100 mls/hr Q24H IVPB 04/14/20 09:00 04/21/20 08:59 7/28/20 09:06 Methylprednisolone Sodium Succinate (Solu-MEDROL) 40 mg EVERY 12 HOURS IVP 04/14/20 10:45 07/13/20 10:44 04/19/20 09:06 Nicotine (Nicoderm) 1 patch Q24H TDERMAL 04/14/20 11:00 07/13/20 10:59 04/19/20 11:53 Sodium Chloride 1,000 ml @ 100 mls/hr Q10H IV 04/14/20 04:00 05/14/20 03:59 04/19/20 03:25 Zolpidem Tartrate (Ambien) 5 mg HSPRN PRN ORAL Insomnia 04/15/20 19:30 04/22/20 19:29 04/18/20 20:14 Assessment/Plan Assessment/Plan IMPRESSION: 1. Left lung mass, suspect carcinoma. 2. Postobstructive pneumonia, left lung. 3. Emphysema. PLAN: Continue steroids, HHN and antibiotics. Patient recently underwent lung biopsy, await results The patient may be a candidate for chemoradiation versus palliative care. Joshua Reeves Omar Syed MD Apr 19, 2020 12:05
--- NOTE | 2020-04-19 12:11 | NUR ---
ASSISTANT PROFESSOR OF ART NOTE CALL RECEIVED FROM DOC CARTER [phone] WITH [facility]. CALLER INFORMED THIS CM HER AGENCY HAS BEEN REQUESTED BY FAMILY MEMBER TO ASSIST WITH RELOCATING PATIENT TO [place] ARE[place] TO BE CLOSER TO FAMILY. PER DOC, SHE WILL UPDATE CM WITH ANY INFO RE PLACEMENT. S/W PATIENT AT BEDSIDE. CONFIRMS HE IS AWARE OF PLACEMENT ASSISTANCE REQUESTED BY HIS COUSIN AND IS IN AGREEMENT.
--- NOTE | 2020-04-19 14:00 | NUR ---
NURSE NOTES: New IV was inserted by CN on left AC with G22 due to the previous IV was leaking. Removed previous IV, no s/s of infection IV site.
[2020-04-19 16:00] VITALS: BP 97/61
--- NOTE | 2020-04-19 19:37 | NUR ---
HAND-OFF: Report given to Renay andendorsed plan of care.
--- NOTE | 2020-04-19 19:45 | Progress Note ---
DATE: 04/19/2020 SUBJECTIVE: This is an elderly male currently doing fine. His blood pressure is still low, but asymptomatic. PHYSICAL EXAMINATION: VITAL SIGNS: Blood pressure is 90s, pulse 84, respirations 18, no fever. CHEST: Bilateral scattered wheezing and crackles. CARDIOVASCULAR: Regular rhythm. No gallop. No murmur. ABDOMEN: Soft. Positive bowel sounds. Nontender. EXTREMITIES: No edema. GENITOURINARY: Deferred. LABORATORY DATA: Patient has no labs today. ASSESSMENT: 1. Acute COPD exacerbation. 2. Anxiety. 3. Hypertension. 4. Overweight. PLAN: We will continue steroid. Continue antibiotic, bronchodilator treatments. Monitor laboratories. Franklin Nelson M.D. DR: CAROLINE JOB#: [id number] CC:
--- NOTE | 2020-04-19 19:58 | NUR ---
NURSE NOTES: RECEIVED PATIENT FROM SHAHLA ORTIZ. PATIENT IS AWAKE, AAOX4, ON NC 2L, NO ACUTE DISTRESS NOTED. NORMAL BREATHING, UNLABORED. PIV ON LEFT AC INTACT AND PATENT. NICOTINE PATCH NOTED ON LEFT CHEST. BED IS LOCKED AND LOW, BED ALARMS ACTIVE, SIDE RAILS UPX2 AND CALL LIGHT IS WITHIN REACH. WILL CONTINUE TO MONITOR.
[2020-04-19 20:00] VITALS: BP 92/58
[2020-04-19] MEDS: Zolpidem 5mg tab ORAL PRN (20:54)
[2020-04-20] VITALS (7 sets, daily range): BP systolic 81–128; BP diastolic 52–78
[2020-04-20] MEDS ORDERED: Albuterol ud Inhalation HHN PRN (01:00)
--- NOTE | 2020-04-20 07:36 | NUR ---
HAND-OFF: Report given to SHAHLA Francis. Endorsed plan of care.
--- NOTE | 2020-04-20 07:37 | NUR ---
NURSE NOTES: Received patient in bed, awake, alert and oriented x4. Patient is on oxygen 2L/min via NC.Bed is in lowest position and locked. Breathing is even and unlabored @ this time. Call light within reach. Will continue to monitor.
--- NOTE | 2020-04-20 08:25 | NUR ---
NURSE NOTES: RN informed Dr. Nelson of episodes of decreased blood pressure of 91/53, asymptomatic. BP was lower in previous shift.Patient's SBP has been <100.Patient takes [place] 5/325 as PRN. PRN pain meds not given @ this time. Pulse is normal, patient denies chest pain. RN received new order to do 2d echo and EKG and physician consult with Dr. Mcadams.Will continue to monitor.
[2020-04-20] MEDS: Solu-MEDROL 40mg Inj IVP SCH ×2 (08:32→20:04)
--- NOTE | 2020-04-20 09:30 | NUR ---
NURSE NOTES: 2d echo and EKG was done @ the bedside.
--- NOTE | 2020-04-20 10:37 | Pulmonology Progress Note ---
Subjective ROS Limited/Unobtainable: No Interval Events: None new reported Constitutional: Reports: no symptoms HEENT: Repors: no symptoms Respiratory: Reports: no symptoms Cardiovascular: Reports: no symptoms Gastrointestinal/Abdominal: Reports: no symptoms Allergies: Coded Allergies: PENICILLINS (Verified Allergy, Intermediate, 04/15/20) hives Objective Last 24 Hour Vital Signs Date Time Temp Pulse Resp B/P (MAP) Pulse Ox O2 Delivery O2 Flow Rate FiO2 04/20/20 07:49 97.6 79 20 91/53 (66) 98 04/20/20 04:00 98.1 62 18 81/56 (64) 96 04/20/20 01:19 74 17 99 Nasal Cannula 2.0 28 73 18 96 04/20/20 00:00 97.9 60 18 82/53 (63) 94 04/19/20 21:00 Nasal Cannula 2.0 04/19/20 20:00 97.7 71 18 92/58 (69) 93 04/19/20 19:00 96 Nasal Cannula 2.0 28 04/19/20 19:00 73 18 96 Nasal Cannula 2.0 28 04/19/20 16:00 97.6 70 19 97/61 (73) 99 04/19/20 12:00 98.9 60 19 93/57 (69) 99 Intake and Output 04/19/20 04/20/20 19:00 07:00 Intake Total 2000 ml 960 ml Balance 2000 ml 960 ml Intake Oral 450 ml IV Total 800 ml 510 ml Other 1200 ml # Voids 5 # Bowel Movements 1 General Appearance: no acute distress HEENT: normocephalic Respiratory: chest wall non-tender Cardiovascular: normal peripheral pulses, normal rate Abdomen: normal bowel sounds Current Medications Medications (Trade) Dose Ordered Sig/Julio Route PRN Reason Start Time Stop Time Status Last Admin Dose Admin Acetaminophen/ Hydrocodone Bitart ([place] 5/325) 1 tab Q6H PRN ORAL FOR PAIN 04/14/20 03:45 04/21/20 03:44 04/19/20 22:25 Albuterol Sulfate (Proventil) 2.5 mg Q4H PRN HHN Shortness of Breath 04/20/20 01:00 04/25/20 00:59 Gabapentin (Neurontin) 100 mg THREE TIMES A DAY ORAL 04/14/20 09:00 05/14/20 08:59 04/20/20 08:32 Levofloxacin 100 ml @ 100 mls/hr Q24H IVPB 04/14/20 09:00 04/21/20 08:59 04/20/20 08:33 Methylprednisolone Sodium Succinate (Solu-MEDROL) 40 mg EVERY 12 HOURS IVP 04/14/20 10:45 07/13/20 10:44 04/20/20 08:32 Nicotine (Nicoderm) 1 patch Q24H TDERMAL 04/14/20 11:00 07/13/20 10:59 04/19/20 11:53 Sodium Chloride 1,000 ml @ 100 mls/hr Q10H IV 04/14/20 04:00 05/14/20 03:59 04/20/20 00:00 Zolpidem Tartrate (Ambien) 5 mg HSPRN PRN ORAL Insomnia 04/15/20 19:30 04/22/20 19:29 04/19/20 20:54 Assessment/Plan Assessment/Plan IMPRESSION: 1. Left lung mass, suspect carcinoma. 2. Postobstructive pneumonia, left lung. 3. Emphysema. PLAN: Continue steroids, HHN and antibiotics. Patient recently underwent lung biopsy, await results The patient may be a candidate for chemoradiation versus palliative care. Joshua Reeves Omar Syed MD Apr 20, 2020 10:37
--- NOTE | 2020-04-20 11:00 | NUR ---
NURSE NOTES: Patient's brother and cousin request to follow up with lung biopsy result form [facility],Patient filled out an PHI and agreed to get information from the hospital. Primary doctor Omar is aware. RN faxed PHI to medical records. fax # [phone]. Will follow up.
--- NOTE | 2020-04-20 14:24 | NUR ---
CASE MANAGEMENT:REVIEW SI;POSTOBSTRUCTIVE PNA. LEFT LUNG MASS. EMPHYSEMA. HYPOTENSION. 98.1 65 20 81/56 94% 2L NC FIO2 @ 28% IS;SOLU-MEDROL IV LEVAQUIN IV IVF NS @ 100 ML/HR PROVENTIL HHN MED SURG STATUS DCP;FROM [facility]
[2020-04-20] MEDS: HYDROcodone/Acetamin 5/325 tab ORAL PRN ×2 (14:59→21:27)
--- NOTE | 2020-04-20 16:00 | NUR ---
NURSE NOTES: Given [place] 5/325mg due to severe pain. Patient's blood pressure is 116/65. Will continue to monitor.
[2020-04-20] MEDS ORDERED: PREDNISONE10 M2 PO (16:42)
--- NOTE | 2020-04-20 16:55 | NUR ---
HAND-OFF: Report given to Glen and endorsed plan of care.
--- NOTE | 2020-04-20 17:20 | NUR ---
NURSE NOTES: Received patient in bed. Awake, A/O x4. On 2 lpm via NC. Denies pain at this time. Bed low and locked. IV in the Left AC, site intact, infusing IVF as ordered.
--- NOTE | 2020-04-20 17:30 | NUR ---
NURSE NOTES: Called medical records [facility] [phone] to f/u on biopsy results but medical records gone for the day.
--- NOTE | 2020-04-20 17:45 | Progress Note ---
DATE: 04/20/2020 SUBJECTIVE: This is an elderly male who came with acute COPD exacerbation. Patient is complaining pain. Low blood pressure, but asymptomatic. ALLERGIES: To penicillin. OBJECTIVE: VITAL SIGNS: Current blood pressure 96/52, pulse 68, no fever. CHEST: Bilateral decreased breath sounds. CARDIOVASCULAR: Regular rhythm. ABDOMEN: Soft. EXTREMITIES: No edema. GENITOURINARY: Deferred. LABORATORY EXAMINATION: His COVID is negative. ASSESSMENT: 1. Acute COPD exacerbation. 2. Anxiety. 3. Lung CA. PLAN: We will currently continue prednisone p.o. Continue pain medication. Continue bronchodilator treatments. Discussed with charge nurse and discussed with also correction and case management. DIET: He is on a 2 g sodium diet. ACTIVITY: As tolerated. DISCHARGE MEDICATIONS: See the list from the hospital. Franklin Nelson M.D. DR: CAROLINE JOB#: [id number] CC:
--- NOTE | 2020-04-20 19:52 | NUR ---
NURSE NOTES: Report received from Justyna RN. Patient is awake and alert x 4. Patient is noted to be on 2 liters of oxygen via nasal canula at this time. Patient denies chest pain and shortness of breath at this time. Patient is noted to have left AC 22 evelin IV access with fluids per MD orders. Patient is noted to have active discharge order. Was endorsed to Benji GALE that case management has not begun to work on on it yet due to it's late input. Was endorsed to Benji GALE that patient will not be discharged back to the facility he was admitted from. Patient has no complaints at this time. Call light in reach. Bed is locked and in lowest position. Will continue to follow plan of care.
[2020-04-20] MEDS: Zolpidem 5mg tab ORAL PRN (20:04)
[2020-04-21] VITALS: BP 137/70
--- NOTE | 2020-04-21 02:20 | NUR ---
HAND-OFF: Report given to Jv GALE. Endorsed that patient has an active discharge order but no placement yet.
[2020-04-21 04:00] VITALS: BP 102/57
[2020-04-21] MEDS ORDERED: HYDROcodone/Acetamin 5/325 tab ORAL PRN (04:11)
--- NOTE | 2020-04-21 07:58 | NUR ---
NURSE NOTES: Report received from Jv GALE. Patient seen on rounds, asleep but easily rousable, not in distress, noted NC at 2lpm. PIV on left AC patent and intact infusing IVF as ordered. Pt is content and ambulatory. Bed low and locked, siderails up x2, call light placed within reach and instructed to call nurse for assistance. Will continue to monitor.
[2020-04-21 08:00] VITALS: BP 100/76
[2020-04-21] MEDS: Solu-MEDROL 40mg Inj IVP SCH (09:08)
--- NOTE | 2020-04-21 10:12 | Pulmonology Progress Note ---
Subjective ROS Limited/Unobtainable: No Interval Events: None new reported Constitutional: Reports: no symptoms HEENT: Repors: no symptoms Respiratory: Reports: no symptoms Cardiovascular: Reports: no symptoms Gastrointestinal/Abdominal: Reports: no symptoms Allergies: Coded Allergies: PENICILLINS (Verified Allergy, Intermediate, 04/15/20) hives Objective Last 24 Hour Vital Signs Date Time Temp Pulse Resp B/P (MAP) Pulse Ox O2 Delivery O2 Flow Rate FiO2 04/21/20 09:00 Nasal Cannula 2.0 04/21/20 08:00 98.1 60 18 100/76 (84) 95 04/21/20 04:00 97.9 55 18 102/57 (72) 97 04/21/20 00:00 98.4 62 18 137/70 (92) 98 04/20/20 21:00 Nasal Cannula 2.0 04/20/20 20:00 98.4 75 20 128/78 (95) 96 04/20/20 19:16 68 18 95 Nasal Cannula 2.0 28 04/20/20 19:16 95 Nasal Cannula 2.0 28 04/20/20 16:00 98.4 68 20 96/52 (67) 94 04/20/20 15:00 113/65 (81) 04/20/20 12:00 97.7 65 20 97/65 (76) 96 Intake and Output 04/20/20 04/21/20 19:00 07:00 Intake Total 2420 ml 700 ml Output Total 1600 ml 700 ml Balance 820 ml 0 ml Intake Oral 1320 ml IV Total 1100 ml 700 ml Output Urine Total 1600 ml 700 ml General Appearance: no acute distress HEENT: normocephalic Respiratory: chest wall non-tender Cardiovascular: normal peripheral pulses, normal rate Abdomen: normal bowel sounds Current Medications Medications (Trade) Dose Ordered Sig/Julio Route PRN Reason Start Time Stop Time Status Last Admin Dose Admin Acetaminophen (Tylenol) 650 mg Q4H PRN ORAL Mild Pain (Pain Scale 1-3) 04/20/20 14:45 05/20/20 14:44 Acetaminophen/ Hydrocodone Bitart ([place] 5/325) 1 tab Q6H PRN ORAL For Pain 04/21/20 04:11 04/28/20 04:10 04/21/20 04:17 Albuterol Sulfate (Proventil) 2.5 mg Q4H PRN HHN Shortness of Breath 04/20/20 01:00 04/25/20 00:59 Gabapentin (Neurontin) 100 mg THREE TIMES A DAY ORAL 04/14/20 09:00 05/14/20 08:59 04/21/20 09:08 Methylprednisolone Sodium Succinate (Solu-MEDROL) 40 mg EVERY 12 HOURS IVP 04/14/20 10:45 07/13/20 10:44 04/21/20 09:08 Nicotine (Nicoderm) 1 patch Q24H TDERMAL 04/14/20 11:00 07/13/20 10:59 04/20/20 11:39 Sodium Chloride 1,000 ml @ 100 mls/hr Q10H IV 04/14/20 04:00 05/14/20 03:59 04/20/20 20:05 Zolpidem Tartrate (Ambien) 5 mg HSPRN PRN ORAL Insomnia 04/15/20 19:30 04/22/20 19:29 04/20/20 20:04 Assessment/Plan Assessment/Plan IMPRESSION: 1. Left lung mass, suspect carcinoma. 2. Postobstructive pneumonia, left lung. 3. Emphysema. PLAN: Continue steroids, HHN and antibiotics. Patient recently underwent lung biopsy, he is unable to identify where; unable to locate any results He refuses new biopsy Suggest dc home or SNF with hospice Joshua Reeves Omar Syed MD Apr 21, 2020 10:12
--- NOTE | 2020-04-21 10:38 | NUR ---
*-*DISCHARGE PLANNED*-* PATIENT HAS BEEN AND WILL BE DISCHARGED TO: [facility] P: [phone] FOR NURSE TO NURSE ROOM# 133.[facility] TRANSPORTATION SET FOR 3PM S/W JOSSUE [id number] S/W PATIENTS FAMILY MEMBER KAYLA MORFIN, WHO IS IN AGREEMENT WITH DISCHARGE PLAN.
[2020-04-21 12:00] VITALS: BP 91/56
--- NOTE | 2020-04-21 15:02 | NUR ---
TALKING BOOKS LIBRARY CLERK NOTE ANITRA INFORMED BY THAT PATIENT VERBALIZED TO HER THAT HIS COUSIN IS WORKING ON FINDING PLACEMENT FOR HIM NEAR FAMILY IN [place], [place]. PER RN, SHE SPOKE WITH PATIENTS COUSIN WHO INFORMED HER THAT HE WANTS PATIENT DC TO [facility] AND NOT TO A SNF. ANITRA MADE CALL TO PATIENTS FAMILY MEMBER KARMEN MORFIN @ [phone] WHO STATES HE IS IN THE PROCESS OF SECURING PLACEMENT. STATED HE DOES NOT WANT PT TO DC TO SNF ITS HARD TO HAVE HIM DC ONCE ADMITTED. ANITRA EXPLAINED TO MR MORFIN THAT PATIENT HAS BEEN DISCHARGED FROM [facility], [facility] AND ONCE PLACEMENT HAS BEEN SECURED IN [place], HE CAN ARRANGE FOR PATIENTS TRANSFER TO [facility] [place] AT THAT TIME. MR MORFIN AGREED WITH DC.
--- NOTE | 2020-04-21 15:49 | NUR ---
NURSE NOTES: Patient discharged to [facility]. Patient is AxOx4, on NC at 2lpm, vitals stable prior to transport. Skin intact. Pt is ambulatory. Report given to Karol GALE at [facility]. All discharge instructions and paperwork given to [facility] ambulance personnel. Also sent copies of report requested from [facility] in [place]. PIV removed, belongings accounted for. Patient left at 4:00pm.
[2020-04-21] MEDS ORDERED: 1/2 NS 1000ml IV ONE (15:55)
--- NOTE | 2020-04-22 23:19 | Initial Psychiatric Evaluation ---
Psychiatry Consultation Psychiatry Consultation Chief Complaint: Dyspnea/Respdistress Allergies: Coded Allergies: PENICILLINS (Verified Allergy, Intermediate, 04/15/20) hives Medication History Scheduled Gabapentin* (Gabapentin*), Unknown Dose ORAL THREE TIMES A DAY, (Reported) Prednisone (Prednisone), 10 MG PO DAILY, (Reported) Scheduled PRN Albuterol Sulfate* (Albuterol Sulfate Hhn*), 3 ML INH Q4H PRN for Shortness of Breath, (Reported) Hydrocodone Bit/Acetaminophen 5-325* ([place] 5-325 Tablet*), 1 TAB ORAL Q6H PRN for FOR PAIN, (Reported) Objective Data Height (Feet): 5 Height (Inches): 11.00 Weight (Pounds): 183 Efe Zhou MD Apr 22, 2020 23:19
--- NOTE | 2020-04-25 14:49 | Discharge Summary ---
Discharge Summary Discharge Summary _ DATE OF ADMISSION: 04/14/2020 DATE OF DISCHARGE: 04/21/2020 DISCHARGED BY: Dr. Nelson REASON FOR ADMISSION: 65 years old male with past medical history of COPD, emphysema, presented with chief complaint of shortness of breath. Patient reported that he ran out of his oxygen. Patient was in the other hospital a week ago and had a biopsy of his lung mass. He reported being unaware of the results, since he did not follow-up on them. Patient was discharged on supplemental oxygen. Patient reported that oxygen was just dropped in his place, but it was not hooked up and he did not know how it worked. He called paramedics. Per paramedics, pulse oximetry on room air was 91%m and on 4 L was 100%. Patient reported shortness of breath , worse with exertion. No cough or congestion. No chest pain. No fever or chills. Upon evaluation pulse oximetry was 92% on room air. Rapid COVID-19 in emergency department was negative. Chest x-ray revealed no acute cardiopulmonary pathology. CTA revealed no evidence of pulmonary embolism. Left lung mass concerning for bronchogenic carcinoma 2.9 x 3.5 x 3.9 cm. Lung mass appeared to cause severe narrowing of adjacent branch pulmonary artery and was at least partially surrounding the left lingular bronchus. Recommended endobronchial ultrasound-guided biopsy. Likely metastatic left upper lobe spiculated 1.5 cm nodule. Laboratory work-up revealed leukocytosis WBC 21, stable hemoglobin, hematocrit and platelet count. Stable electrolytes and renal parameters. Troponin negative, pro BNP 200. EKG revealed sinus rhythm, no acute ischemic changes. Albumin 3.3. Glucose 113. Urine toxicology screen was negative. Serum alcohol was less than 3. Urinalysis revealed +1 leukocyte esterase, no pyuria, no bacteria. Patient subsequently admitted for further management. CONSULTANTS: pulmonary Dr. Romero psychiatrist Dr. Zhou [facility]: Patient admitted . Supplemental oxygen provided and titrated to keep pulse oximetry above 92%. Pulmonary toilet with bronchodilators provided. Patient started on intervenous steroids with gradual tapering and empiric antibiotics. Pain management was addressed as needed. Patient was unable to identify where he had the first biopsy of the lung . Patient declined another biopsy at this facility. Patient subsequently clinically stabilized and was ready for discharge. Placement was found and secured at the [facility] . FINAL DIAGNOSES: Acute COPD exacerbation Left lung mass, suspected carcinoma Postobstructive pneumonia left lung Emphysema Lung CA DISCHARGE MEDICATIONS: See Medication Reconciliation list. DISCHARGE INSTRUCTIONS: Patient was discharged to the [facility]. Follow up with medical doctor at the facility. I have been assigned to dictate discharge summary for this account. I was not involved in the patient's management. Lexi Hernandez NP Apr 25, 2020 14:49
== END 2020-04-21 15:56 | DRG 180 ==
LOC: EDBD 23:03 → EMR 23:30 → 4E 04-14 01:31 → EDBEDREQ 04-14 01:48
DX: C34.32 Malignant neoplasm of lower lobe, left bronchus or lung (principal); J18.9 Pneumonia, unspecified organism; J44.0 Chronic obstructive pulmonary disease with (acute) lower respiratory infection; J44.1 Chronic obstructive pulmonary disease with (acute) exacerbation; F41.8 Other specified anxiety disorders; F17.200 Nicotine dependence, unspecified, uncomplicated; Z88.0 Allergy status to penicillin; G89.29 Other chronic pain
CPT/HCPCS: 36415; 71045; 71275; 80053; 80307; 81003; 83880; 84484; 85007; 85025; 85379; 85610; 85730; 86140; 93005; 93306; 94640; 94664; 99285; G0480; U0002